=== PATIENT | male | born 1965 | race Caucasian/White ===

== ENCOUNTER 2018-08-11 13:00 | Inpatient (IN) | payer MEDICAID, OTHER ==
[~2018-08-11] VITALS: Ht 175.3 cm; Wt 99.3 kg
[2018-08-11 13:56] LABS: EOSINOPHILS % 3.5 % (0.0-5.0); HEMOGLOBIN. 13.7 g/dL (14.0-18.0); LYMPHOCYTES % 25.2 % (20.0-50.0); MEAN CORPUSCULAR HEMOGLOBIN 30.6 pg (28.0-32.0); MEAN CORPUSCULAR VOLUME 87.3 fL (80.0-94.0); MEAN PLATELET VOLUME 8.1 fl (7.4-10.4); MONOCYTES % 7.8 % (2.0-8.0); NEUTROPHILS % 62.5 % (40.0-76.0); PLATELET 250 x1000/uL (130-400); RED BLOOD CELL COUNT 4.47 mill/uL (4.7-6.1)
[2018-08-11 14:04] LABS: CHLORIDE 104 mEq/L (98-107)
[2018-08-11] MEDS ORDERED: NITROGLYCERIN 0.4MG TABLET SL SL PRN ×2 (14:15→17:30)
[2018-08-11 14:54] LABS: D-DIMER < 0.19 mg/L FEU (<0.50); PARTIAL THROMBOPLASTIN TIME 27.1 sec (23.4-31.0); PROTHROMBIN TIME 9.9 sec (9.1-11.1)
[2018-08-11 16:57] VITALS: BP 173/101
[2018-08-11] MEDS ORDERED: ATOR80TA MT (17:04)
[2018-08-11] MEDS ORDERED: ASPI81TA47 PO (17:04)
[2018-08-11] MEDS ORDERED: ONDANSETRON HCL 4MG/2ML INJ IV PRN (17:15)
[2018-08-11] MEDS ORDERED: KETOROLAC 30MG/ML VIAL IV PRN (17:15)
[2018-08-11] MEDS ORDERED: GUAIFENESIN 200MG/10ML SUGAR FREE UDC PO PRN (17:15)
[2018-08-11] MEDS ORDERED: ACETAMINOPHEN 325MG TABLET PO PRN (17:15)
[2018-08-11] MEDS ORDERED: MAGNESIUM/ALUMINUM HYDROXIDE/SIMETHICONE 30ML UDC PO PRN (17:15)
[2018-08-11] MEDS ORDERED: IPRATROPIUM/ALBUTEROL 0.5-3(2.5)MG/3ML NEB INH PRN (17:15)
[2018-08-11] MEDS ORDERED: CLONIDINE 0.1MG TABLET PO PRN (17:15)
[2018-08-11] MEDS ORDERED: NA PHOS,M-B/NA PHOS,DI-BA ENEMA 118ML PR PRN (17:15)
[2018-08-11] MEDS ORDERED: DOCUSATE SODIUM 100MG CAPSULE PO PRN (17:15)
[2018-08-11 19:38] VITALS: BP 143/74
[2018-08-11 20:00] VITALS: BP 142/80
[2018-08-11] MEDS: METOPROLOL TARTRATE 25MG TABLET PO SCH (20:08)
[2018-08-11] MEDS: LISINOPRIL 20MG TABLET PO SCH (20:08)
[2018-08-11] MEDS: LORAZEPAM 0.5MG TABLET PO PRN (20:08)
[2018-08-11] MEDS: FAMOTIDINE 20MG TABLET PO SCH (20:09)
[2018-08-11] MEDS: ENOXAPARIN 30MG/0.3ML SYR SUBCUT SCH (20:11)
[2018-08-11] MEDS ORDERED: ZOLPIDEM TARTRATE 5MG TABLET PO PRN (21:00)
[2018-08-12] VITALS: BP 143/83
[2018-08-12] MEDS: LORAZEPAM 0.5MG TABLET PO PRN ×2 (00:05→10:34)
[2018-08-12 00:31] LABS: CREATINE KINASE 242 IU/L (39-308)
[2018-08-12 00:33] LABS: CREATINE KINASE MB FRACTION 1.2 ng/mL (0.5-3.6)
[2018-08-12 05:25] VITALS: BP 139/67
[2018-08-12 06:14] LABS: LDL CHOLESTEROL 137 mg/dL (5-100)
[2018-08-12 06:15] LABS: CREATINE KINASE 237 IU/L (39-308)
[2018-08-12 06:17] LABS: CREATINE KINASE MB FRACTION 1.5 ng/mL (0.5-3.6); HDL CHOLESTEROL 33 mg/dL (40-59)
[2018-08-12 08:00] VITALS: BP 153/87
[2018-08-12 08:34] LABS: *AMPHETAMINES SCREEN URINE NEGATIVE (NEGATIVE)
[2018-08-12 08:35] LABS: *BARBITURATES SCREEN URINE NEGATIVE (NEGATIVE)
[2018-08-12 08:36] LABS: *BENZODIAZEPINES SCREEN URINE NEGATIVE (NEGATIVE); *COCAINE SCREEN URINE NEGATIVE (NEGATIVE); CANNABINOID URINE SCREEN NEGATIVE (NEGATIVE); METHADONE URINE SCREEN NEGATIVE (NEGATIVE); OPIATES URINE SCREEN PRESUMTIVE POSITIVE (NEGATIVE); PHENCYCLIDINE URINE SCREEN NEGATIVE (NEGATIVE)
[2018-08-12] MEDS ORDERED: ASPIRIN 325MG EC TABLET PO SCH (09:00)
[2018-08-12] MEDS: FAMOTIDINE 20MG TABLET PO SCH (09:50)
[2018-08-12] MEDS: LISINOPRIL 20MG TABLET PO SCH (09:50)
[2018-08-12] MEDS: ENOXAPARIN 30MG/0.3ML SYR SUBCUT SCH (09:50)
[2018-08-12] MEDS: METOPROLOL TARTRATE 25MG TABLET PO SCH (09:51)
[2018-08-12 11:05] VITALS: BP 150/78
== END 2018-08-12 11:20 | disposition home or self-care (01) | DRG 198 ==
LOC: ER 13:31 → EDBEDREQ 15:13 → 5WST 15:14 → EDBEDREQTM 15:15 → EDBEDREQ 15:15 → ENRESERV 15:32
PROVIDERS: ADMIT Internal Medicine; ATTEND Internal Medicine
DX: R07.89 Other chest pain (principal); I25.10 Atherosclerotic heart disease of native coronary artery without angina pectoris; F17.210 Nicotine dependence, cigarettes, uncomplicated; I10 Essential (primary) hypertension; Z95.5 Presence of coronary angioplasty implant and graft; I25.2 Old myocardial infarction; Z71.6 Tobacco abuse counseling
CPT/HCPCS: 36415; 71045; 80053; 80061; 80305; 82550; 82553; 83036; 83880; 84484; 85025; 85379; 85610; 85730; 93005; 93970; 99285; J1650

== ENCOUNTER 2018-08-23 19:20 | Inpatient (IN) | payer MEDICAID, OTHER ==
[~2018-08-23] VITALS: Ht 167.6 cm; Wt 84.1 kg
[~2018-08-23 19:20] MED LIST: ASPI81TA47 PO
[2018-08-23] MEDS ORDERED: LORAZEPAM 2MG/ML CPJ IV ONE (20:45)
[2018-08-23 21:02] LABS: BASOPHILS % 0.8 % (0.0-2.0); EOSINOPHILS % 2.4 % (0.0-5.0); HEMATOCRIT. 42.3 % (42.0-52.0); HEMOGLOBIN. 14.5 g/dL (14.0-18.0); LYMPHOCYTES % 28.8 % (20.0-50.0); MEAN CORPUSCULAR HEMOGLOBIN 30.3 pg (28.0-32.0); MEAN CORPUSCULAR VOLUME 88.5 fL (80.0-94.0); MEAN PLATELET VOLUME 8.7 fl (7.4-10.4); MONOCYTES % 9.6 % (2.0-8.0); NEUTROPHILS % 58.4 % (40.0-76.0); PLATELET 291 x1000/uL (130-400); RED BLOOD CELL COUNT 4.78 mill/uL (4.7-6.1); RED CELL DISTRIBUTION WIDTH 13.8 % (11.6-14.6)
[2018-08-23 21:12] LABS: CHLORIDE 102 mEq/L (98-107); ETHANOL BLOOD < 10 mg/dL
[2018-08-23] MEDS ORDERED: ASPIRIN 325MG EC TABLET PO ONE (22:00)
[2018-08-23 23:39] LABS: CLARITY URINE CLEAR (CLEAR); COLOR URINE YELLOW (YELLOW); KETONES URINE 3+ (NEGATIVE); LEUKOCYTE ESTERASE URINE NEGATIVE (NEGATIVE); NITRITE URINE NEGATIVE (NEGATIVE); OCCULT BLOOD URINE TRACE (NEGATIVE); PH URINE 5.5 (4.5-8.0); PROTEIN URINE NEGATIVE (NEGATIVE); SPECIFIC GRAVITY URINE 1.028 (1.005-1.030); UROBILINOGEN URINE 0.2 E.U./dL (0.2-1.0)
[2018-08-24] VITALS: BP 109/61
[2018-08-24 00:03] LABS: *AMPHETAMINES SCREEN URINE PRESUMTIVE POSITIVE (NEGATIVE); *BARBITURATES SCREEN URINE NEGATIVE (NEGATIVE); *BENZODIAZEPINES SCREEN URINE NEGATIVE (NEGATIVE); *COCAINE SCREEN URINE NEGATIVE (NEGATIVE)
[2018-08-24 00:04] LABS: CANNABINOID URINE SCREEN NEGATIVE (NEGATIVE); METHADONE URINE SCREEN NEGATIVE (NEGATIVE); OPIATES URINE SCREEN NEGATIVE (NEGATIVE); PHENCYCLIDINE URINE SCREEN NEGATIVE (NEGATIVE)
[2018-08-24] MEDS ORDERED: SODIUM CHLORIDE 0.45% 1,000 ML IV SCH (00:04)
[2018-08-24 00:15] VITALS: BP 109/61
[2018-08-24] MEDS ORDERED: HYDROCODONE/ACETAMINOPHEN 5/325MG TABLET PO PRN (00:15)
[2018-08-24] MEDS ORDERED: NA PHOS,M-B/NA PHOS,DI-BA ENEMA 118ML PR PRN (00:15)
[2018-08-24] MEDS ORDERED: DOCUSATE SODIUM 100MG CAPSULE PO PRN (00:15)
[2018-08-24] MEDS ORDERED: IPRATROPIUM/ALBUTEROL 0.5-3(2.5)MG/3ML NEB INH PRN (00:15)
[2018-08-24] MEDS ORDERED: LORAZEPAM 2MG/ML CPJ IV PRN (00:15)
[2018-08-24] MEDS ORDERED: CLONIDINE 0.1MG TABLET PO PRN (00:15)
[2018-08-24] MEDS ORDERED: GUAIFENESIN 200MG/10ML SUGAR FREE UDC PO PRN (00:15)
[2018-08-24] MEDS ORDERED: DIPHENHYDRAMINE 50MG/ML VIAL IV PRN (00:15)
[2018-08-24] MEDS ORDERED: MORPHINE SULFATE 4 MG/ML CPJ (NOT FOR IM USE) IV PRN (00:15)
[2018-08-24] MEDS ORDERED: ACETAMINOPHEN 325MG TABLET PO PRN (00:15)
[2018-08-24] MEDS ORDERED: ONDANSETRON HCL 4MG/2ML INJ IV PRN (00:15)
[2018-08-24] MEDS ORDERED: MAGNESIUM/ALUMINUM HYDROXIDE/SIMETHICONE 30ML UDC PO PRN (00:15)
[2018-08-24 04:00] VITALS: BP 114/78
[2018-08-24] MEDS ORDERED: ENOXAPARIN 40MG/0.4ML SYR SUBCUT SCH (06:00)
[2018-08-24 07:31] LABS: BASOPHILS % 1.1 % (0.0-2.0); EOSINOPHILS % 3.6 % (0.0-5.0); HEMATOCRIT. 41.1 % (42.0-52.0); HEMOGLOBIN. 14.3 g/dL (14.0-18.0); LYMPHOCYTES % 28.7 % (20.0-50.0); MEAN CORPUSCULAR HEMOGLOBIN 30.8 pg (28.0-32.0); MEAN CORPUSCULAR VOLUME 88.6 fL (80.0-94.0); MEAN PLATELET VOLUME 8.7 fl (7.4-10.4); MONOCYTES % 9.5 % (2.0-8.0); NEUTROPHILS % 57.1 % (40.0-76.0); PLATELET 257 x1000/uL (130-400); RED BLOOD CELL COUNT 4.64 mill/uL (4.7-6.1); RED CELL DISTRIBUTION WIDTH 13.9 % (11.6-14.6)
[2018-08-24 08:00] VITALS: BP 123/82
[2018-08-24 08:11] LABS: CHLORIDE 104 mEq/L (98-107)
[2018-08-24 08:28] LABS: HDL CHOLESTEROL 32 mg/dL (40-59); LDL CHOLESTEROL 138 mg/dL (5-100)
[2018-08-24] MEDS ORDERED: ASPIRIN 81MG EC TABLET PO SCH (09:00)
[2018-08-24] MEDS ORDERED: POTASSIUM CHLORIDE 20MEQ TABLET SR PO NR (10:15)
[2018-08-24 12:00] VITALS: BP 135/82
[2018-08-24 12:35] VITALS: BP 135/82
== END 2018-08-24 14:17 | disposition home or self-care (01) | DRG 47 ==
LOC: ER 19:20 → 8WST 21:48 → ENRESERV 23:20
PROVIDERS: ADMIT Internal Medicine; ATTEND Internal Medicine
DX: G45.9 Transient cerebral ischemic attack, unspecified (principal); G93.41 Metabolic encephalopathy; I10 Essential (primary) hypertension; I25.10 Atherosclerotic heart disease of native coronary artery without angina pectoris; Z95.5 Presence of coronary angioplasty implant and graft
CPT/HCPCS: 36415; 71045; 80061; 80305; 80307; 80329; 82962; 84443; 84484; 93005; 93880; 96374; 99285; G0482; J1650; J2060